=== PATIENT | female | born 1960 | race Asian ===

== ENCOUNTER 2021-04-01 07:39 | Day surgery (SDC) | payer MEDICAID ==
[~2021-04-01] VITALS: Ht 165 cm; Wt 59.0 kg
[2021-04-01] MEDS ORDERED: SIMETHICONE 40 MG/0.6 ML ML ONE (07:52)
[2021-04-01] MEDS ORDERED: fentaNYL CITRATE/PF 100 MCG/2 ML AMP ONE (07:53)
[2021-04-01] MEDS ORDERED: MIDAZOLAM HCL 5 MG/5 ML VIAL ONE (07:53)
[2021-04-01 14:59] VITALS: BP_SYST 94
== END 2021-04-01 09:45 | disposition home or self-care (01) ==
LOC: SDS 07:39 → SMU 07:41 → EDSEX 09:00 → SDS 09:45
PROVIDERS: ATTEND Internal Medicine
DX: R19.5 Other fecal abnormalities (principal); K59.00 Constipation, unspecified; K64.8 Other hemorrhoids; I10 Essential (primary) hypertension; E78.5 Hyperlipidemia, unspecified; E11.9 Type 2 diabetes mellitus without complications; Z79.899 Other long term (current) drug therapy; Z20.822 Contact with and (suspected) exposure to COVID-19
CPT/HCPCS: 45378; 82962; 99152; G0378; J2250; J3010; U0003

== ENCOUNTER 2021-07-15 07:09 | Day surgery (SDC) | payer MEDICAID, SELFPAY ==
[~2021-07-15] VITALS: Ht 162.6 cm; Wt 49.9 kg
[2021-07-15 12:45] VITALS: BP_SYST 138
== END 2021-07-15 10:05 | disposition home or self-care (01) ==
LOC: SDS 07:09 → SMU 07:11 → SDS 10:05
PROVIDERS: ATTEND Internal Medicine
DX: K21.9 Gastro-esophageal reflux disease without esophagitis (principal); K29.50 Unspecified chronic gastritis without bleeding; K29.80 Duodenitis without bleeding; Z80.0 Family history of malignant neoplasm of digestive organs; R19.5 Other fecal abnormalities; K59.00 Constipation, unspecified; Z20.822 Contact with and (suspected) exposure to COVID-19; Z79.899 Other long term (current) drug therapy
CPT/HCPCS: 36415; 43239; 82962; 87081; 87426; 88305; 88312; 88313; 99152; G0378; U0003